=== PATIENT | male | born 1950 | race Caucasian/White ===

== ENCOUNTER 2023-05-31 15:01 | Inpatient (IN) ==
--- NOTE | 2023-05-31 15:14 | ED Triage Note ---
Date of Service May 31, 2023 History of Present Illness This patient was briefly evaluated while in triage. An abbreviated physical exam was performed. This patient is a 73-year-old Male who presents to the ED for evaluation of "well they think there might be either pneumonia or a blood clot in my lung." Brenden engel was seen by Dr. Crawford at 11:30 this morning. 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 Now is experiencing right knee pain. Pt. c/o "shortness of breath for sure, dry cough, constantly clearing my throat." Physical Exam VITALS: Vitals are noted on the nurse's note and reviewed by myself. GENERAL: This is a 73 year old male, in no acute distress, nondiaphoretic, well- developed well-nourished. SKIN: No obvious rashes, edema, erythema HEAD: Normocephalic atraumatic. EYES: Conjunctivae without injection, sclerae without icterus. NECK: No JVD. LUNGS: No retractions or accessory muscle use. MUSCULOSKELETAL: Normal gait. NEURO: Patient was alert and oriented to person place and time. No focal neurological deficits. Initial orders for labs and / or imaging were placed and patient was placed in the waiting area until a bed is available. Please see further documentation for the full ED course.
[2023-05-31 16:23] LABS: Basophils # (auto) 0.03 K/uL (0-0.2); Basophils % (auto) 0.3 %; Eosinophils # (auto) 0.13 K/uL (0-0.50); Eosinophils % (auto) 1.5 %; Hematocrit (blood only) 43.6 % (42.0-52.0); Hemoglobin 15.4 g/dl (14.0-18.0); Immature Granulocytes # (auto) 0.04 K/uL (0.01-0.20); Immature Granulocytes % (auto) 0.5 %; Lymphocytes # (auto) 1.49 K/uL (1.2-3.4); Lymphocytes % (auto) 17.2 %; Mean Corpuscular Hemoglobin 32.9 pg (25.0-34.0); Mean Corpuscular Hgb Conc 35.3 g/dL (32.0-36.0); Mean Corpuscular Volume 93.2 fL (80.0-100.0); Mean Platelet Volume 9.5 fL (9.4-12.4); Monocytes # (auto) 0.97 K/uL (0.11-0.59); Monocytes % (auto) 11.2 %; Neutrophils # (auto) 6.02 K/uL (1.40-6.50); Neutrophils % (auto) 69.3 %; Platelet Count 179 K/uL (130-400); RDW Coefficient of Variation 12.6 % (11.5-14.5); Red Blood Count 4.68 M/uL (4.70-6.10); White Blood Count 8.68 K/ul (4.8-10.8)
[2023-05-31 16:31] LABS: Albumin Globulin Ratio 1.4 (0.9-2); Albumin Level 4.8 gm/dl (3.4-5.0); BUN Creatinine Ratio 21.4 (10-20); Bilirubin,Total 0.9 mg/dl (0.2-1.0); Calcium 10.2 mg/dl (8.6-10.3); Creatinine Clr Calc Pharmacy 70.5 ml/min; Est GFR (African American) 75.1 ml/min; Est GFR (Non-African American) 64.8 ml/min; Globulin 3.5 gm/dl (2.5-4.0); Potassium 3.6 mmol/L (3.5-5.1); Total Protein 8.3 gm/dl (6.0-8.3)
[2023-05-31 16:37] LABS: Troponin I High Sensitivity 4.9 pg/ml (0-20)
[2023-05-31 16:45] LABS: Partial Thromboplastin Ratio 0.9; Partial Thromboplastin Time 25.1 Seconds (21.0-31.0); Prothrombin Time 11.4 Seconds (9.0-12.0)
[2023-05-31] MEDS ORDERED: OPTIRAY 320 125ml IV ONE (17:17)
--- NOTE | 2023-05-31 17:35 | Emergency Department Note ---
Impression & Plan FOWLER (dyspnea on exertion), Bilateral pulmonary embolism, DVT (deep venous thrombosis) ED Provider Note ED Provider Note NAME: JOSE LOMELI AGE:73 SEX: Male : 1950 ARRIVES VIA: private vehicle INFORMANT: Patient ED PROVIDER(s): Kallie Aguero DO CHIEF COMPLAINT: shortness of breath with exertion HPI: This is a 73-year-old male presents emergency department due to concern for increased shortness of breath with any exertion over the last 10 days. Patient contacted his PCP and was sent for an echo as an outpatient as well as blood work. He was called today when the blood work revealed an elevated D-dimer and was sent here urgently for CT imaging. Patient states he does have a prior history of a DVT in his left lower extremity. He is not chronically anticoagulated. He states he does not know why he had the prior DVT. He states he is also recently noticed pain behind the right knee that feels similar to to the prior left-sided blood clot. He denies fevers, chills, nausea or vomiting. Patient states he has had some intermittent left-sided chest pressure as well as dizziness with standing. No other URI symptoms or recent illness. No recent medication changes. PAST MEDICAL HISTORY:See Below PAST SURGICAL HISTORY:See Below FAMILY HISTORY:See Below SOCIAL HISTORY:See Below HOME MEDICATIONS:See Below ALLERGIES:See Below VITALS:See Below PHYSICAL EXAMINATION: GENERAL: alert, well appearing, well nourished, no distress, non-toxic EYE EXAM: normal conjunctiva, PERRL and EOM's grossly intact OROPHARYNX: no exudate, no erythema, lips, buccal mucosa, and tongue normal and mucous membranes are moist NECK: supple, no nuchal rigidity, no adenopathy, non-tender LUNGS: Clear to auscultation. Normal chest wall mechanics, no w/r/r HEART: no murmurs, S1 normal and S2 normal ABDOMEN: abdomen soft, non-tender, normo-active bowel sounds, no masses, no rebound or guarding. BACK: Back is symmetrical on inspection and there is no deformity, no midline tenderness, no CVA tenderness. SKIN: no rashes, petechiae, orbruising UPPER EXTREMITIES: upper extremities are grossly normal. FROM, nml pulses b/l. LOWER EXTREMITIES: No pitting edema. FROM, nml pulses b/l. NEURO EXAM: Normal sensorium, cranial nerves II-XII grossly intact, normal speech, no facial droop,nogross weakness of arms, no gross weakness of legs. Gross sensation intact. No ataxia. Vital Signs: reviewed and remarkable Differential Diagnosis: pneumonia, bronchitis, COPD/Asthma exacerbation, pneumothorax, pleural effusion, pulmonary embolism, congestive heart failure, acute coronary syndrome, pericardial effusion, as well as others were considered MEDICAL DECISION MAKING: This is a 73-year-old male presents emergency department after being referred here by his PCP. Patient reports 10 days of worsening dyspnea with exertion, intermittent chest discomfort, and right lower extremity pain. Patient does have a prior history of DVT. He was afebrile and vital signs stable. Labs been performed as an outpatient by his PCP which showed an elevated D-dimer and patient referred here for CAT scan. Upon arrival here labs are drawn and sent, IV established, EKG performed at bedside interpreted by me and patient had been sent for CT angiography of the chest. CT showed multiple bilateral PEs with concern for right heart strain. Patient had a negative troponin on labs here. Patient sent for lower extremity Doppler additionally due to concern for possible recurrent DVT. Patient is not chronically anticoagulated. No prior history to suggest contraindication to anticoagulation. Patient started on heparin bolus and drip here and case discussed with the hospitalist for additional evaluation and management. Patient and updated on all results at bedside. Consultation(s): 1822: Discussed with Dr. Petit. ER Treatment Provided: See below Diagnostics Interpreted By Me: -ECG: Normal sinus at 87, normal axis, normal intervals, no acute ST/T wave changes -Cardiac Monitoring: An order was placed for continuous cardiac monitoring. The monitor shows a rate of 70 with normal sinus rhythm. -Laboratory studies: As stated above and show below. -Imaging studies: Triage Nursing Note Reviewed Prior/Outside Records Reviewed -recent outpatient echo and office evaluation from Dr. Ferrari Critical Care: Critical care of 40 min performed to assess and manage high likelihood of life- threatening multiple bilateral PEs, involving labs and imaging performed with assessment to evaluate dyspnea with exertion diagnosis with frequent reassessment. This time includes bedside time, treatment discussions with patient/family/consultants, documentation time and excludes procedure time. Past Med/Surg History Medical History Hypertension Social History Smoking Status: Former smoker Tobacco Type: Cigarettes Hx Alcohol Use: Yes Alcohol type: beer Hx Substance Use: No Preferred Language: Moldovan Clinical Social Worker Required: No Beliefs That Will Affect Care: None Current Living Situation: Spouse Other Information That Helps Us Care for You: No Feels Safe at Home: Yes Safety Concerns: Feels Safe At This Time Assistive Devices: Glasses Allergies Allergies Allergy/AdvReac Type Severity Reaction Status Date / Time Penicillins Allergy Intermediate Hives Verified 05/31/23 17:51 Home Meds Home Medications Medication Instructions Recorded Confirmed amlodipine 10 mg tablet 10 mg PO HS 01/20/21 05/31/23 ascorbic acid (vitamin C) 500 mg 500 mg PO QAM 01/20/21 05/31/23 tablet (Vitamin C) atorvastatin 40 mg tablet 40 mg PO QAM 01/20/21 05/31/23 lisinopril 20 1 tab PO QAM 01/20/21 05/31/23 mg-hydrochlorothiazide 25 mg tablet [id number] 1 tab PO QAM 01/20/21 05/31/23 tablet (Multivitamin 50 Plus tablet) omeprazole 40 mg capsule,delayed 40 mg PO QAM 01/20/21 05/31/23 release Results & Data (ED) Vital Signs Vital Signs - 24 hr 05/31/23 15:12 05/31/23 17:31 05/31/23 17:31 Temperature 37.4 C Temperature Source Temporal Artery Scan Pulse Rate 99 H 72 Pulse Rate from SpO2 Sensor Pulse Rhythm Regular Respiratory Rate 16 27 H Blood Pressure 106/63 Blood Pressure [Left Arm] 138/105 H Blood Pressure Mean 77 Blood Pressure Mean [Left Arm] 116 Pulse Oximetry 92 96 Oxygen Delivery Method Room Air Room Air Sepsis Recent Fever Within 48 Hours No Sepsis New/Unexplained Change in Mental Status N/A Sepsis Action Taken by Nursing No Action Required 05/31/23 17:42 05/31/23 17:40 05/31/23 17:50 Temperature Temperature Source Pulse Rate 71 71 70 Pulse Rate from SpO2 Sensor 73 70 Pulse Rhythm Respiratory Rate 19 17 Blood Pressure Blood Pressure [Left Arm] Blood Pressure Mean Blood Pressure Mean [Left Arm] Pulse Oximetry 95 95 Oxygen Delivery Method Sepsis Recent Fever Within 48 Hours Sepsis New/Unexplained Change in Mental Status Sepsis Action Taken by Nursing 05/31/23 17:58 05/31/23 17:58 05/31/23 18:00 Temperature Temperature Source Pulse Rate 68 Pulse Rate from SpO2 Sensor 69 Pulse Rhythm Respiratory Rate 15 Blood Pressure 116/67 124/60 Blood Pressure [Left Arm] Blood Pressure Mean 83 81 Blood Pressure Mean [Left Arm] Pulse Oximetry 97 Oxygen Delivery Method Sepsis Recent Fever Within 48 Hours Sepsis New/Unexplained Change in Mental Status Sepsis Action Taken by Nursing 05/31/23 18:00 05/31/23 18:10 05/31/23 18:20 Temperature Temperature Source Pulse Rate 70 70 69 Pulse Rate from SpO2 Sensor 71 71 68 Pulse Rhythm Respiratory Rate 18 14 16 Blood Pressure Blood Pressure [Left Arm] Blood Pressure Mean Blood Pressure Mean [Left Arm] Pulse Oximetry 94 95 95 Oxygen Delivery Method Sepsis Recent Fever Within 48 Hours Sepsis New/Unexplained Change in Mental Status Sepsis Action Taken by Nursing 05/31/23 18:30 05/31/23 18:30 Temperature Temperature Source Pulse Rate 69 Pulse Rate from SpO2 Sensor 68 Pulse Rhythm Respiratory Rate 18 Blood Pressure 137/76 Blood Pressure [Left Arm] Blood Pressure Mean 96 Blood Pressure Mean [Left Arm] Pulse Oximetry 94 Oxygen Delivery Method Sepsis Recent Fever Within 48 Hours Sepsis New/Unexplained Change in Mental Status Sepsis Action Taken by Nursing Laboratory Data 05/31/23 15:56 05/31/23 15:56 Lab Results 05/31/23 05/31/23 05/31/23 Range/Units 15:56 15:56 15:56 WBC 8.68 (4.8-10.8) K/ul RBC 4.68 L (4.70-6.10) M/uL Hgb 15.4 (14.0-18.0) g/dl Hct 43.6 (42.0-52.0) % MCV 93.2 (80.0-100.0) fL MCH 32.9 (25.0-34.0) pg MCHC 35.3 (32.0-36.0) g/dL RDW Std Deviation 43.0 (36.4-46.3) fL RDW Coeff of [place] 12.6 (11.5-14.5) % Plt Count 179 (130-400) K/uL MPV 9.5 (9.4-12.4) fL Immature Gran % (Auto) 0.5 % Neut % (Auto) 69.3 % Lymph % (Auto) 17.2 % [place] % (Auto) 11.2 % Eos % (Auto) 1.5 % Baso % (Auto) 0.3 % Neut # (Auto) 6.02 (1.40-6.50) K/uL Lymph # (Auto) 1.49 (1.2-3.4) K/uL [place] # (Auto) 0.97 H (0.11-0.59) K/uL Eos # (Auto) 0.13 (0-0.50) K/uL Baso # (Auto) 0.03 (0-0.2) K/uL Immature Gran # (Auto) 0.04 (0.01-0.20) K/uL PT 11.4 (9.0-12.0) Seconds INR 1.0 (0.9-1.1) APTT 25.1 (21.0-31.0) Seconds PTT Ratio 0.9 Sodium 132 L (136-145) mmol/L Potassium 3.6 (3.5-5.1) mmol/L Chloride 94 L (98-107) mmol/L Carbon Dioxide 28 (21-32) mmol/L Anion Gap 10 (3-11) BUN 24 H (6-23) mg/dl Creatinine 1.12 (0.6-1.4) mg/dl Est Cr Clr Drug Dosing 70.5 ml/min Est GFR ( Amer) 75.1 ml/min Est GFR (Non-Af Amer) 64.8 ml/min BUN/Creatinine Ratio 21.4 H (10-20) Glucose 150 H (70-99(Fasting)) mg/dl Calcium 10.2 (8.6-10.3) mg/dl Total Bilirubin 0.9 (0.2-1.0) mg/dl AST 27 (13-39) U/L ALT 27 (7-52) U/L Alkaline Phosphatase 71 (34-104) U/L Troponin I High Sens 4.9 (0-20) pg/ml Total Protein 8.3 (6.0-8.3) gm/dl Albumin 4.8 (3.4-5.0) gm/dl Globulin 3.5 (2.5-4.0) gm/dl Albumin/Globulin Ratio 1.4 (0.9-2) SARS-CoV-2, RNA, NAAT (NEGATIVE) 05/31/23 Range/Units 18:30 WBC (4.8-10.8) K/ul RBC (4.70-6.10) M/uL Hgb (14.0-18.0) g/dl Hct (42.0-52.0) % MCV (80.0-100.0) fL MCH (25.0-34.0) pg MCHC (32.0-36.0) g/dL RDW Std Deviation (36.4-46.3) fL RDW Coeff of [place] (11.5-14.5) % Plt Count (130-400) K/uL MPV (9.4-12.4) fL Immature Gran % (Auto) % Neut % (Auto) % Lymph % (Auto) % [place] % (Auto) % Eos % (Auto) % Baso % (Auto) % Neut # (Auto) (1.40-6.50) K/uL Lymph # (Auto) (1.2-3.4) K/uL [place] # (Auto) (0.11-0.59) K/uL Eos # (Auto) (0-0.50) K/uL Baso # (Auto) (0-0.2) K/uL Immature Gran # (Auto) (0.01-0.20) K/uL PT (9.0-12.0) Seconds INR (0.9-1.1) APTT (21.0-31.0) Seconds PTT Ratio Sodium (136-145) mmol/L Potassium (3.5-5.1) mmol/L Chloride (98-107) mmol/L Carbon Dioxide (21-32) mmol/L Anion Gap (3-11) BUN (6-23) mg/dl Creatinine (0.6-1.4) mg/dl Est Cr Clr Drug Dosing ml/min Est GFR ( Amer) ml/min Est GFR (Non-Af Amer) ml/min BUN/Creatinine Ratio (10-20) Glucose (70-99(Fasting)) mg/dl Calcium (8.6-10.3) mg/dl Total Bilirubin (0.2-1.0) mg/dl AST (13-39) U/L ALT (7-52) U/L Alkaline Phosphatase (34-104) U/L Troponin I High Sens (0-20) pg/ml Total Protein (6.0-8.3) gm/dl Albumin (3.4-5.0) gm/dl Globulin (2.5-4.0) gm/dl Albumin/Globulin Ratio (0.9-2) SARS-CoV-2, RNA, NAAT NEGATIVE (NEGATIVE) Administered Medications Amlodipine Besylate (Amlodipine Besylate 5 Mg Tab) 10 mg PO HS [facility] Stop: 06/30/23 20:59 Last Admin: 05/31/23 21:16 Dose: 10 mg Documented By: WILIAM Discontinued Medications Enoxaparin Sodium (Enoxaparin 100 Mg/1ml Syr) 100 mg SQ ONE ONE; Protocol Stop: 05/31/23 18:46 Last Admin: 05/31/23 19:25 Dose: 100 mg Documented By: RIOS Heparin Sodium (Porcine) (Heparin Sod (Porcine) 1000 Unit/Ml) 7,000 units IV NOW ONE Stop: 05/31/23 18:16 Last Admin: 05/31/23 18:15 Dose: 7,000 units Documented By: MERA Co-signed By: MC Heparin Sodium/Dextrose (Heparin Sodium/Dextrose) 25,000 units in 500 mls @ 31 mls/hr IV .[id number] [facility]; Protocol Stop: 06/30/23 18:29 Last Titration: 05/31/23 18:29 Dose: 0 units/hr, 0 mls/hr Documented By: MC Co-signed By: MERA Admin: 05/31/23 18:26 Dose: 1,550 units/hr, 31 mls/hr Documented By: MERA Co-signed By: MC Ioversol (Optiray 320 125ml) 93 ml IV ONCE ONE Stop: 05/31/23 17:18 Last Admin: 05/31/23 17:18 Dose: 93 ml Documented By: GUS Imaging Data Radiologist's Impression: Chest CTA 05/31/23 15:14 CT angio chest PE protocol CLINICAL HISTORY: Sob, hx. DVT, right leg swelling/pain TECHNIQUE: Multidetector row helical CT of the chest was performed with angiographic protocol. Coronal and sagittal reformations were obtained. Coronal and sagittal MIPS were obtained from the axial data set and were submitted for review. Automated dose lowering techniques and/or adjustment according to patient size were utilized for this exam. CT DOSE: 872.55 mGy.cm Comparison: None available at the time of this dictation. FINDINGS: Lungs and pleura: Normal. Heart and pericardium: Heart size is normal. No pericardial effusion. There is borderline flattening of the interventricular septum. Vessels: Numerous pulmonary emboli are seen in the bilateral main pulmonary arteries as well as multiple lobar and segmental/subsegmental branches. Mediastinum and cathy: Unremarkable. Chest wall and lower neck: Unremarkable. Abdomen: Unremarkable. Bones: Degenerative changes in the thoracic spine. IMPRESSION: Extensive pulmonary emboli are seen. There may be minimal right heart strain. ACT 112: Negative or not required by law. Electronically signed by: Shahzad Leon M.D. 05/31/2023 5:44 PM Venous Doppler Study 05/31/23 15:15 ULTRASOUND RIGHT LOWER EXTREMITY VENOUS CLINICAL HISTORY: Right leg pain and swelling. Pulmonary embolus. COMPARISON STUDY: No priors. TECHNIQUE: Real-time, grayscale, and color Doppler sonography of the deep veins of the right lower extremity was performed from the inguinal crease to the calf. Compression and augmentation were utilized. FINDINGS: There is extensive occlusive deep venous thrombosis in the right lower extremity. This extends from the proximal superficial femoral vein distally into the calf vessels. The common femoral vein is patent and normally compressible. The greater saphenous vein and the profunda femoris vein at the junction with the common femoral vein are clear. IMPRESSION: Extensive occlusive deep venous thrombosis throughout the right lower extremity as above. ACT 112: Negative or not required by law. Electronically signed by: Farhat Jeffrey M.D. 05/31/2023 11:05 PM Discharge Plan Visit Data Chief Complaint: Referred by Doctor Stated Complaint: DR REFERRED FOR CHEST CT SCAN ED Provider: Kallie Aguero Discharge Problem: FOWLER (dyspnea on exertion), Bilateral pulmonary embolism, DVT (deep venous thrombosis) Patient Disposition: Admitted As Inpatient Discharge Instructions Interventions: ED Discharge Assessment Last Done: 05/31/23 20:02
--- NOTE | 2023-05-31 17:46 | CT Scan Report ---
CT angio chest PE protocol CLINICAL HISTORY: Sob, hx. DVT, right leg swelling/pain TECHNIQUE: Multidetector row helical CT of the chest was performed with angiographic protocol. Álvarez l and sagittal reformations were obtained. Coronal and sagittal MIPS were obtained from the axial aurea a set and were submitted for review. Automated dose lowering techniques and/or adjustment according to patient size were utilized for this exam. CT DOSE: 872.55 mGy.cm Comparison: None available at the time of this dictation. FINDINGS: Lungs and pleura: Normal. Heart and pericardium: Heart size is normal. No pericardial effusion. There is borderline flattening of the interventricular septum. Vessels: Numerous pulmonary emboli are seen in the bilateral main pulmonary arteries as well as multi ple lobar and segmental/subsegmental branches. Mediastinum and cathy: Unremarkable. Chest wall and lower neck: Unremarkable. Abdomen: Unremarkable. Bones: Degenerative changes in the thoracic spine. IMPRESSION: Extensive pulmonary emboli are seen. There may be minimal right heart strain. ACT 112: Negative or not required by law. Electronically signed by: Shahzad Leon M.D. 05/31/2023 5:44 PM
[2023-05-31] MEDS ORDERED: Heparin IV Adult Wt-Based Standard WITH Bolus Protocol IV STA (18:01)
[2023-05-31] MEDS ORDERED: HEPARIN SOD (PORCINE) 1000 UNIT/ML IV ONE ×2 (18:15→18:17)
[2023-05-31] MEDS ORDERED: HEPARIN SODIUM/DEXTROSE 25,000 UNITS/500 ML BAG IV SCH ×2 (18:30)
[2023-05-31] MEDS ORDERED: ENOXAPARIN 100 MG/1ML SYR SQ ONE (18:45)
--- NOTE | 2023-05-31 19:25 | History & Physical Report ---
Date of Service May 31, 2023 Assessment & Plan (1) Bilateral pulmonary embolism: Plan: Presents to the ED with increasing shortness of breath on exertion for past 10 days. Reports pain in popliteal area of the right leg for similar duration. CTA chest was done which showed extensive PE with minimal right heart strain. No provoking event. History of unprovoked DVT in 2020 as well EKG personally reviewed; normal sinus rhythm; no ST or T wave changes High sensitive troponin negative Started on Lovenox 1 mg/kg twice daily. Obtain echocardiogram to evaluate for right heart strain. Obtain BNP Obtain bilateral venous duplex Monitor oxygen saturation Will likely need lifelong anticoagulation given unprovoked nature of the PE. Age-appropriate cancer screening as outpatient Plan Other conditions; Hypertensioncontinue on amlodipine, lisinoprilhydrochlorothiazide Hyperlipidemiacontinue Lipitor Time spent evaluating patient, direct bedside care, chart review, placing orders, interpretation of diagnostic studies, discussion with consultants, patient, and family members, as well as other required patient management activities is 88 minutes Please note the above document was generated using voice recognition software. It may contain grammatical, syntax or spelling errors. Any formal questions or concerns about the content, text or information contained within the body of this dictation should be directly addressed to the provider for clarification History of Present Illness Chief Complaint: Shortness of breath for 10 days Elevated D-dimer level Primary Care Provider: Hi Lemus MD History obtained from chart review and interview with the patient. Past medical history of hypertension, DVT in left popliteal vein in January2021 (completed 3 months of Eliquis), hyperlipidemia He presents to the ED with increasing shortness of breath on exertion for past 10 days. He also reports pain in popliteal area of the right leg for similar duration. He was seen by his primary care doctor for the same complaint today. He was referred to come to the ED to obtain D-dimer level and CT angio chest No history of recent surgery, prolonged immobilization or travel. No known family history of blood clot disorder. On presentation to the ED, he was normotensive, afebrile and saturating well in room air. CTA chest was done which showed extensive PE with minimal right heart strain. He was started on heparin drip and hospitalist team was consulted Allergies Allergy/AdvReac Type Severity Reaction Status Date / Time Penicillins Allergy Intermediate Hives Verified 05/31/23 17:51 Home Medications Medication Instructions Recorded Confirmed Type amlodipine 10 mg tablet 10 mg PO HS 01/20/21 05/31/23 History ascorbic acid (vitamin C) 500 mg 500 mg PO QAM 01/20/21 05/31/23 History tablet (Vitamin C) atorvastatin 40 mg tablet 40 mg PO QAM 01/20/21 05/31/23 History lisinopril 20 1 tab PO QAM 01/20/21 05/31/23 History mg-hydrochlorothiazide 25 mg tablet [id number]-[id number]-ujpoif 1 tab PO QAM 01/20/21 05/31/23 History tablet (Multivitamin 50 Plus tablet) omeprazole 40 mg capsule,delayed 40 mg PO QAM 01/20/21 05/31/23 History release Past Med/Surg History Medical History Hypertension Social History Smoking Status: Unknown if ever smoked Tobacco Type: Cigarettes Preferred Language: Eritrean Feels Safe at Home: Yes Review of Systems Review of Systems: All systems reviewed & are unremarkable except as noted in Subjective Physical Exam Physical Exam: Constitutional: WD/WN, vitals as above, NAD, sitting up in bed, pleasant, conversing easily Respiratory: normal respiratory effort, lungs clear to auscultation, no wheeze, rales, rhonchi. Normal insp/exp effort, no accessory muscle use Cardiovascular: RRR, no murmur, no edema Vessels: no JVD or carotid bruit Chest: normal inspection of chest Abdomen: normal bowel sounds, soft, nontender, no hepatosplenomegaly Musculoskeletal: no cyanosis or clubbing, extremities motor strength 5/5. Right calf bigger than left. Skin: no rashes, warm and dry normal turgor Neurologic: PERRL, EOMI, accommodation nl, no face palsy, no dysarthria CN's II- XI intact bilaterally and moves all extremities Psychiatric: A+Ox3, euthymic affect Results & Data Results & Data Vital Signs (Past 12 Hours) Vital Signs Temp Pulse Resp BP BP Pulse Ox O2 Del Method 05/31/23 17:42 71 05/31/23 17:31 138/105 H 05/31/23 17:31 72 27 H 96 Room Air 05/31/23 15:12 37.4 C 99 H 16 106/63 92 Room Air Laboratory Results Laboratory Results WBC 8.68 K/ul (4.8-10.8) 05/31/23 15:56 RBC 4.68 M/uL (4.70-6.10) L 05/31/23 15:56 Hgb 15.4 g/dl (14.0-18.0) 05/31/23 15:56 Hct 43.6 % (42.0-52.0) 05/31/23 15:56 MCV 93.2 fL (80.0-100.0) 05/31/23 15:56 MCH 32.9 pg (25.0-34.0) 05/31/23 15:56 MCHC 35.3 g/dL (32.0-36.0) 05/31/23 15:56 RDW Std Deviation 43.0 fL (36.4-46.3) 05/31/23 15:56 RDW Coeff of [place] 12.6 % (11.5-14.5) 05/31/23 15:56 Plt Count 179 K/uL (130-400) 05/31/23 15:56 MPV 9.5 fL (9.4-12.4) 05/31/23 15:56 Immature Gran % (Auto) 0.5 % 05/31/23 15:56 Neut % (Auto) 69.3 % 05/31/23 15:56 Lymph % (Auto) 17.2 % 05/31/23 15:56 Keith % (Auto) 11.2 % 05/31/23 15:56 Eos % (Auto) 1.5 % 05/31/23 15:56 Baso % (Auto) 0.3 % 05/31/23 15:56 Neut # (Auto) 6.02 K/uL (1.40-6.50) 05/31/23 15:56 Lymph # (Auto) 1.49 K/uL (1.2-3.4) 05/31/23 15:56 Keith # (Auto) 0.97 K/uL (0.11-0.59) H 05/31/23 15:56 Eos # (Auto) 0.13 K/uL (0-0.50) 05/31/23 15:56 Baso # (Auto) 0.03 K/uL (0-0.2) 05/31/23 15:56 Immature Gran # (Auto) 0.04 K/uL (0.01-0.20) 05/31/23 15:56 PT 11.4 Seconds (9.0-12.0) 05/31/23 15:56 INR 1.0 (0.9-1.1) 05/31/23 15:56 APTT 25.1 Seconds (21.0-31.0) 05/31/23 15:56 PTT Ratio 0.9 05/31/23 15:56 Sodium 132 mmol/L (136-145) L 05/31/23 15:56 Potassium 3.6 mmol/L (3.5-5.1) 05/31/23 15:56 Chloride 94 mmol/L (98-107) L 05/31/23 15:56 Carbon Dioxide 28 mmol/L (21-32) 05/31/23 15:56 Anion Gap 10 (3-11) 05/31/23 15:56 BUN 24 mg/dl (6-23) H 05/31/23 15:56 Creatinine 1.12 mg/dl (0.6-1.4) 05/31/23 15:56 Est Cr Clr Drug Dosing 70.5 ml/min 05/31/23 15:56 Est GFR ( Amer) 75.1 ml/min 05/31/23 15:56 Est GFR (Non-Af Amer) 64.8 ml/min 05/31/23 15:56 BUN/Creatinine Ratio 21.4 (10-20) H 05/31/23 15:56 Glucose 150 mg/dl (70-99(Fasting)) H 05/31/23 15:56 Calcium 10.2 mg/dl (8.6-10.3) 05/31/23 15:56 Total Bilirubin 0.9 mg/dl (0.2-1.0) 05/31/23 15:56 AST 27 U/L (13-39) 05/31/23 15:56 ALT 27 U/L (7-52) 05/31/23 15:56 Alkaline Phosphatase 71 U/L (34-104) 05/31/23 15:56 Troponin I High Sens 4.9 pg/ml (0-20) 05/31/23 15:56 Total Protein 8.3 gm/dl (6.0-8.3) 05/31/23 15:56 Albumin 4.8 gm/dl (3.4-5.0) 05/31/23 15:56 Globulin 3.5 gm/dl (2.5-4.0) 05/31/23 15:56 Albumin/Globulin Ratio 1.4 (0.9-2) 05/31/23 15:56 SARS-CoV-2, RNA, NAAT NEGATIVE (NEGATIVE) 05/31/23 18:30 Impressions Chest CTA 05/31/23 15:14 CT angio chest PE protocol CLINICAL HISTORY: Sob, hx. DVT, right leg swelling/pain TECHNIQUE: Multidetector row helical CT of the chest was performed with angiographic protocol. Coronal and sagittal reformations were obtained. Coronal and sagittal MIPS were obtained from the axial data set and were submitted for review. Automated dose lowering techniques and/or adjustment according to patient size were utilized for this exam. CT DOSE: 872.55 mGy.cm Comparison: None available at the time of this dictation. FINDINGS: Lungs and pleura: Normal. Heart and pericardium: Heart size is normal. No pericardial effusion. There is borderline flattening of the interventricular septum. Vessels: Numerous pulmonary emboli are seen in the bilateral main pulmonary arteries as well as multiple lobar and segmental/subsegmental branches. Mediastinum and cathy: Unremarkable. Chest wall and lower neck: Unremarkable. Abdomen: Unremarkable. Bones: Degenerative changes in the thoracic spine. IMPRESSION: Extensive pulmonary emboli are seen. There may be minimal right heart strain. ACT 112: Negative or not required by law. Electronically signed by: Shahzad Leon M.D. 05/31/2023 5:44 PM Code Status & VTE Plan VTE Prophylaxis Plan VTE Prophylaxis will be ordered: No
[2023-05-31] MEDS ORDERED: ACETAMINOPHEN 325 MG TAB PO PRN (20:36)
[2023-05-31] MEDS ORDERED: ALUMINUM/MAGNESIUM SUSP 30 ML UDC PO PRN (20:36)
[2023-05-31] MEDS: amLODIPine BESYLATE 5 MG TAB PO SCH (21:16)
--- NOTE | 2023-05-31 23:08 | Ultrasound Report ---
ULTRASOUND RIGHT LOWER EXTREMITY VENOUS CLINICAL HISTORY: Right leg pain and swelling. Pulmonary embolus. COMPARISON STUDY: No priors. TECHNIQUE: Real-time, grayscale, and color Doppler sonography of the deep veins of the right lower ex tremity was performed from the inguinal crease to the calf. Compression and augmentation were utilize d. FINDINGS: There is extensive occlusive deep venous thrombosis in the right lower extremity. This exte nds from the proximal superficial femoral vein distally into the calf vessels. The common femoral vei n is patent and normally compressible. The greater saphenous vein and the profunda femoris vein at th e junction with the common femoral vein are clear. IMPRESSION: Extensive occlusive deep venous thrombosis throughout the right lower extremity as above. ACT 112: Negative or not required by law. Electronically signed by: Farhat Jeffrey M.D. 05/31/2023 11:05 PM
[2023-06-01 01:27] LABS: Partial Thromboplastin Ratio 1.2; Partial Thromboplastin Time 35.2 Seconds (21.0-31.0)
[2023-06-01] MEDS: PANTOprazole 40 MG TAB PO SCH (06:04)
[2023-06-01 06:54] LABS: Basophils # (auto) 0.06 K/uL (0-0.2); Basophils % (auto) 0.8 %; Eosinophils # (auto) 0.31 K/uL (0-0.50); Eosinophils % (auto) 4.2 %; Hematocrit (blood only) 38.1 % (42.0-52.0); Hemoglobin 13.6 g/dl (14.0-18.0); Immature Granulocytes # (auto) 0.02 K/uL (0.01-0.20); Immature Granulocytes % (auto) 0.3 %; Lymphocytes # (auto) 1.52 K/uL (1.2-3.4); Lymphocytes % (auto) 20.6 %; Mean Corpuscular Hemoglobin 33.6 pg (25.0-34.0); Mean Corpuscular Hgb Conc 35.7 g/dL (32.0-36.0); Mean Corpuscular Volume 94.1 fL (80.0-100.0); Mean Platelet Volume 9.8 fL (9.4-12.4); Monocytes # (auto) 0.91 K/uL (0.11-0.59); Monocytes % (auto) 12.3 %; Neutrophils # (auto) 4.57 K/uL (1.40-6.50); Neutrophils % (auto) 61.8 %; Platelet Count 164 K/uL (130-400); RDW Coefficient of Variation 12.5 % (11.5-14.5); RDW Standard Deviation 43.7 fL (36.4-46.3); Red Blood Count 4.05 M/uL (4.70-6.10); White Blood Count 7.39 K/ul (4.8-10.8)
[2023-06-01 07:16] LABS: Albumin Globulin Ratio 1.4 (0.9-2); Albumin Level 3.9 gm/dl (3.4-5.0); BUN Creatinine Ratio 21.8 (10-20); Bilirubin,Total 0.7 mg/dl (0.2-1.0); Calcium 8.7 mg/dl (8.6-10.3); Creatinine Clr Calc Pharmacy 77.8 ml/min; Est GFR (African American) 85.1 ml/min; Est GFR (Non-African American) 73.4 ml/min; Globulin 2.7 gm/dl (2.5-4.0); Potassium 3.9 mmol/L (3.5-5.1); Total Protein 6.6 gm/dl (6.0-8.3)
[2023-06-01] MEDS: CEROVITE ADV FORMULA TAB PO SCH (08:01)
[2023-06-01] MEDS: ASCORBIC ACID 500 MG TAB PO SCH (08:01)
[2023-06-01] MEDS: ATORVASTATIN 40 MG TAB PO SCH (08:01)
[2023-06-01] MEDS: LISINOPRIL/HCTZ 20/25MG 1 TAB PO SCH (08:01)
[2023-06-01] MEDS: ENOXAPARIN 100 MG/1ML SYR SQ SCH ×2 (08:01→21:28)
--- NOTE | 2023-06-01 12:14 | Electrocardiogram Report ---
Test Reason : Blood Pressure : / mmHG Vent. Rate : 087 BPM Atrial Rate : 087 BPM P-R Int : 172 ms QRS Dur : 098 ms QT Int : 368 ms P-R-T Axes : 000 -22 012 degrees QTc Int : 442 ms Normal sinus rhythm Normal ECG When compared with ECG of 10-AUG-2004 09:12, Vent. rate has increased BY 36 BPM Confirmed by Jimmy Koenig ([id number]) on 06/01/2023 12:14:27 PM Referred By: Christopher Ferrari Confirmed By:Norbert Koenig
--- NOTE | 2023-06-01 13:56 | XCELERA ---
[id number] \\[id number]___[id number]
--- NOTE | 2023-06-01 16:27 | Hospitalist Progress Note ---
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 CTA chest was done which showed extensive PE with minimal right heart strain. RLE Doppler positive for DVT No provoking event. History of unprovoked DVT in 2020 as well x LLE, did use Eliquis at that time. EKG personally reviewed; normal sinus rhythm; no ST or T wave changes High sensitive troponin negative at presentation Echocardiogram reviewed, right ventricle normal in size and function. Left ventricular systolic function normal. EF 55 to 60%. Started on Lovenox 1 mg/kg twice daily. Plan to transition to Eliquis after cost eval. Patient with complaint of dyspnea on exertion, on room air at rest, reports minimal improvement. Will likely need lifetime anticoagulation. Age-appropriate cancer screening as an outpatient. Patient communicated plan of care. Monitor oxygen saturation. Plan Other conditions; Hypertensioncontinue on amlodipine, lisinoprilhydrochlorothiazide Hyperlipidemiacontinue Lipitor Please note the above document was generated using voice recognition software. It may contain grammatical, syntax or spelling errors. Any formal questions or concerns about the content, text or information contained within the body of this dictation should be directly addressed to the provider for clarification Admission and Anticipated Discharge Date Admission Date: May 31, 2023 Subjective Patient seen and examined at bedside as a follow-up for DVT and PE. Patient was lying in bed, on room air, NAD, reports dyspnea on exertion, denies cough or febrile illness, denies headache or dizziness, denies any pain or burning with passing urine, reports eating okay and moving bowels okay. Physical Exam Physical Exam: GENERAL: Alert and oriented x3. NAD, on RA. HEENT: No pallor, no icterus. Pupils equal, round and reactive to light. Oral mucosa moist. NECK: No JVD, no neck masses. HEART: S1 and S2 heard. Regular rate and rhythm. No murmur, no gallop. RESPIRATORY SYSTEM: Normal AP diameter. No accessory muscle use. No wheezing, no crackles. ABDOMEN: Soft, bowel sounds present, nontender, no distention. CENTRAL NERVOUS SYSTEM: No facial droop. Speech is clear. Obeys simple commands. Moves extremities. EXTREMITIES: RLE swollen and tender/warm, no pitting edema LLE. Results & Data Results & Data Vital Signs (Past 12 Hours) Vital Signs Temp Pulse Pulse Resp BP Pulse Ox O2 Del Method 06/01/23 15:29 37.0 C 56 L 16 107/58 L 93 Room Air 06/01/23 15:16 60 06/01/23 11:08 36.7 C 61 18 131/76 97 Room Air 06/01/23 08:00 62 06/01/23 07:34 36.8 C 68 18 115/76 97 Room Air
[2023-06-01] MEDS: amLODIPine BESYLATE 5 MG TAB PO SCH (21:29)
[2023-06-02] MEDS: PANTOprazole 40 MG TAB PO SCH (06:20)
[2023-06-02 06:30] LABS: Hematocrit (blood only) 36.9 % (42.0-52.0); Mean Corpuscular Hemoglobin 33.1 pg (25.0-34.0); Mean Corpuscular Hgb Conc 35.2 g/dL (32.0-36.0); Mean Corpuscular Volume 93.9 fL (80.0-100.0); Mean Platelet Volume 9.8 fL (9.4-12.4); Platelet Count 178 K/uL (130-400); RDW Coefficient of Variation 12.4 % (11.5-14.5); RDW Standard Deviation 43.1 fL (36.4-46.3); Red Blood Count 3.93 M/uL (4.70-6.10); White Blood Count 7.96 K/ul (4.8-10.8)
[2023-06-02 06:54] LABS: BUN Creatinine Ratio 19.8 (10-20); Calcium 8.8 mg/dl (8.6-10.3); Creatinine Clr Calc Pharmacy 70.8 ml/min; Est GFR (African American) 75.9 ml/min; Est GFR (Non-African American) 65.5 ml/min; Magnesium 1.8 mg/dl (1.7-2.4); Phosphorus 2.7 mg/dl (2.5-4.9); Potassium 3.8 mmol/L (3.5-5.1)
[2023-06-02] MEDS: CEROVITE ADV FORMULA TAB PO SCH (08:19)
[2023-06-02] MEDS: ENOXAPARIN 100 MG/1ML SYR SQ SCH (08:19)
[2023-06-02] MEDS: ASCORBIC ACID 500 MG TAB PO SCH (08:19)
[2023-06-02] MEDS: LISINOPRIL/HCTZ 20/25MG 1 TAB PO SCH (08:19)
[2023-06-02] MEDS: ATORVASTATIN 40 MG TAB PO SCH (08:19)
--- NOTE | 2023-06-02 12:09 | Discharge Summary ---
Date of Service June 02, 2023 Admission HPI Per Admitting Provider History obtained from chart review and interview with the patient. Past medical history of hypertension, DVT in left popliteal vein in January2021 (completed 3 months of Eliquis), hyperlipidemia He presents to the ED with increasing shortness of breath on exertion for past 10 days. He also reports pain in popliteal area of the right leg for similar duration. He was seen by his primary care doctor for the same complaint today. He was referred to come to the ED to obtain D-dimer level and CT angio chest No history of recent surgery, prolonged immobilization or travel. No known family history of blood clot disorder. On presentation to the ED, he was normotensive, afebrile and saturating well in room air. CTA chest was done which showed extensive PE with minimal right heart strain. He was started on heparin drip and hospitalist team was consulted Admission Exam Per Admitting Provider Constitutional: WD/WN, vitals as above, NAD, sitting up in bed, pleasant, conversing easily Respiratory: normal respiratory effort, lungs clear to auscultation, no wheeze, rales, rhonchi. Normal insp/exp effort, no accessory muscle use Cardiovascular: RRR, no murmur, no edema Vessels: no JVD or carotid bruit Chest: normal inspection of chest Abdomen: normal bowel sounds, soft, nontender, no hepatosplenomegaly Musculoskeletal: no cyanosis or clubbing, extremities motor strength 5/5. Right calf bigger than left. Skin: no rashes, warm and dry normal turgor Neurologic: PERRL, EOMI, accommodation nl, no face palsy, no dysarthria CN's II- XI intact bilaterally and moves all extremities Psychiatric: A+Ox3, euthymic affect Principal Diagnosis Extensive acute DVT right femoral vein likely causing extensive pulmonary emboli Bilateral pulmonary embolism RLE DVT Discharge Exam GENERAL: Alert and oriented x3. NAD, on RA. HEENT: No pallor, no icterus. Pupils equal, round and reactive to light. Oral mucosa moist. NECK: No JVD, no neck masses. HEART: S1 and S2 heard. Regular rate and rhythm. No murmur, no gallop. RESPIRATORY SYSTEM: Normal AP diameter. No accessory muscle use. No wheezing, no crackles. ABDOMEN: Soft, bowel sounds present, nontender, no distention. CENTRAL NERVOUS SYSTEM: No facial droop. Speech is clear. Obeys simple commands. Moves extremities. EXTREMITIES: RLE swollen and tender/warm --> imprvoing already, no pitting edema LLE. 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 CTA chest was done which showed extensive PE with minimal right heart strain. RLE Doppler positive for DVT No provoking event. History of unprovoked DVT in 2020 as well x LLE, did use Eliquis at that time. EKG personally reviewed; normal sinus rhythm; no ST or T wave changes High sensitive troponin negative at presentation Echocardiogram reviewed, right ventricle normal in size and function. Left ventricular systolic function normal. EF 55 to 60%. Started on Lovenox 1 mg/kg twice daily. Plan to transition to Eliquis from today evening. 10 mg bid x 7 d f/b 5 mg bid. Patient reports moving around in the hallway without any dyspnea on exertion or chest pain. He is hemodynamically stable and would like to go home. Will likely need [facility] anticoagulation. Age-appropriate cancer screening as an outpatient. Patient communicated plan of care. Patient's at bedside, communicated plan of care. Plan Other conditions; Hypertensioncontinue on amlodipine, lisinoprilhydrochlorothiazide Hyperlipidemiacontinue Lipitor Patient being discharged home with following instruction at the point of discharge: Follow-up with your primary care physician within a week time and likely you will need labs CBC/CMP/magnesium/phosphorus. Start your Eliquis from today evening. You will need to take 10 mg of Eliquis twice a day for 7 days followed by 5 mg of Eliquis twice a day afterwards. Follow-up with your PCP to be up-to-date on your age appropriate cancer screening. You will benefit by establishing with hematology Dr Evaluation in 2 to 3 months time. Follow-up with your PCP office for referral. Please make sure that you are able to get your medications today by calling your pharmacy before you leave the hospital so that your treatment continuity is not broken. Please note the above document was generated using voice recognition software. It may contain grammatical, syntax or spelling errors. Any formal questions or concerns about the content, text or information contained within the body of this dictation should be directly addressed to the provider for clarification Home Health Attestation I certify that this patient is under my care and that I, or a physicians delinquent tax collector assistant working with me, had a face to-face encounter that meets the home health [id number] encounter requirements with this patient. The encounter with the patient was in whole, or in part, for the following medical condition, which is the primary reason for home health care (list medical condition): I certify that, based on my findings, the following services are medically necessary home health services: My clinical findings support the need for the above services because: Further, I certify that my clinical findings support that this patient is homebound (i.e. absences from home require considerable and taxing effort and are for medical reasons or adventism services or infrequently or of short duration when for other reasons) because: Certification for Home Health Services: Based on the above findings, I certify that this patient is confined to the home and needs intermittent senior care care, physical therapy and/or speech therapy or continues to need occupational therapy. The patient is under my care, and I have initiated the establishment of the plan of care. This patient will be followed by a physician who will periodically review the plan of care. Total Time Total Time Spent Total Time Spent (In Minutes): 45 Discharge Plan Discharge Items Patient Disposition: Home - Self-Care Reason For Visit: PE Discharge Diagnosis: Extensive acute DVT right femoral vein likely causing extensive pulmonary emboli Bilateral pulmonary embolism RLE DVT Activity: Resume your previous activity Non-emergency contact: Primary Care Provider Call non-emergency contact if: you have any medication questions, your symptoms worsen and your temperature is above 101 Follow-up/Referrals: Hi Lemus MD [Primary Care Provider] - (Date & Time 06/09/2023 8:00 AM Provider Homero Dodson MD [facility] ) Diet: Regular Addtl Attending Provider Instructions: Follow-up with your primary care physician within a week time and likely you will need labs CBC/CMP/magnesium/phosphorus. Start your Eliquis from today evening. You will need to take 10 mg of Eliquis twice a day for 7 days followed by 5 mg of Eliquis twice a day afterwards. Follow-up with your PCP to be up-to-date on your age appropriate cancer screening. You will benefit by establishing with hematology Dr Evaluation in 2 to 3 months time. Follow-up with your PCP office for referral. Please make sure that you are able to get your medications today by calling your pharmacy before you leave the hospital so that your treatment continuity is not broken. Pending Studies at Discharge: No Stand-Alone Forms: My [facility] [employer], Smoking Cessation Medications and DC Order Prescriptions: New Eliquis 5 mg tablet 5 mg PO UD Qty: 74 0RF Rx Instructions: 2 tabs twice a day for 7days followed by 1 tab twice a day. Continued atorvastatin 40 mg tablet 40 mg PO QAM omeprazole 40 mg capsule,delayed release(DR/EC) 40 mg PO QAM Rx Instructions: Take 1 hour before first meal of the day. amlodipine 10 mg tablet 10 mg PO HS lisinopril-hydrochlorothiazide 20-25 mg tablet 1 tab PO QAM ascorbic acid (vitamin C) [Vitamin C] 500 mg Tablet 500 mg PO QAM Multivitamin 50 Plus Tablet 1 tab PO QAM Discharge Orders: Discharge Order (Routine); Ordered 06/02/23 Ordered By: Whitney Wood Admission Data Admit Date/Time: 05/31/23 18:33 Attending Provider: Whitney Wood Admit Provider: Jasbir Petit Primary Care Provider: Hi Lemus Other Providers: Jasbir Petit Other Interventions: Discharge Summary Assessment (RN) Last Done: 06/02/23 12:11
== END 2023-06-02 13:16 | disposition home or self-care (01) | DRG 299 ==
LOC: ED 15:01 → 2E 18:33 → SUATTDRO 18:33 → 2E 20:02